=== PATIENT | female | born 1960 | race Caucasian/White ===

== ENCOUNTER 2023-12-18 11:40 | Emergency (ER) | payer MEDICARE, SELFPAY ==
[2023-12-18 11:43] VITALS: BP 142/83
--- NOTE | 2023-12-18 12:49 | ED.MUSCINJ ---
HPI-Injury
<DAVID Laureano - Last Filed: 12/18/23 15:04>
General
Chief Complaint: Fall
Source: patient
Exam Limitations: none
Time Seen by Provider: 12/18/23 12:25
Travel History
Have you had any contact with someone who has COVID-19?: No
Do you have any symptoms of coronavirus? Fever > 100 degrees, chills, cough, shortness of breath, sore throat, loss of taste or smell, muscle aches, or headache?: No
History of Present Illness-Injury
Is this injury a work related problem?: No
Is pt an associate of [facility]?: No
Initial Injury comments:
This is a 63 y/o female with a PMH of chronic back pain with sciatica who presents to the ED c/o RLE pain after falling on the ice last Sunday. She reports twisting her RLE while falling down and injuring her R hip, R knee, and R ankle. She
describes the knee pain as feeling a 'metal rajni shooting' from the back of her knee through to the front and down the lateral aspect of her LE to her ankle. She reports right medial ankle pain that is throbbing. The knee and ankle pain is aggravated
by twisting movements and weightbearing and alleviated with Vicodin and ice. She states that these pains are constant, but the ankle pain has been improving. She reports chronic right hip pain related to spinal problems that worsened after the fall.
Her hip pain is aggravated by laying on her right side and weightbearing. She admits to bruising on the medial and lateral aspects of her right ankle but denies swelling of her RLE. She reports driving her car without difficulty for the past week.
She denies weakness, numbness, paresthesias, and swelling of her RLE and any other injuries from the fall.
Past History
<DAVID Laureano - Last Filed: 12/18/23 15:04>
Past History
ED Past Medical History: Psychiatric (Anxiety and depression) and Other (Pneumonia)
ED Past Surgical History: , Gynecological and Orthopedic (Microdiscectomy, laparoscopic knee surgery)
Social History
Tobacco: Former smoker
Alcohol: None
Drug: None
Personal:
Employment: Employed ([employer] Artist)
Review of Systems
<DAVID Laureano - Last Filed: 12/18/23 15:04>
Review of Systems
Constitutional: Reports no symptoms
Musculoskeletal: Reports joint pain (Right hip, right knee, right ankle) and other (Right medial and lateral ankle ecchymosis); Denies joint swelling
Skin: Reports no symptoms
Neurological: Reports no symptoms; Denies weakness or numbness
Phy Exam
<DAVID Laureano - Last Filed: 12/18/23 15:04>
General Physical Exam
General Presentation: well appearing and no apparent distress
General age: appears stated age
General Skin: warm
General Habitus: normal
General Mental: alert
General Hydration: appears well hydrated
Neurological Exam
Neurological Exam: alert, oriented x3, no motor deficits, no sensory deficits and other (Normal muscle strength and sensation of RLE including hip, knee, and ankle)
Musculoskeletal Exam
Musculoskeletal Exam: full ROM, joint swelling (Right ankle, right knee), neuro vasc intact and other (Right knee pain with Digna valgus stress test)
Comment
comment:
Right lateral malleolus tender to palpation
Right knee: lateral knee tender to palpation, negative Briana's, negative anterior drawer, negative posterior drawer
Injury Course
<DAVID Laureano - Last Filed: 12/18/23 15:04>
Orders/Labs/Results
Orders:
Orders
12/18/23 11:50
CR Ankle - Right Min 3 Views * Urgent
Comment:
Reason For Exam: fall
Knee, Right 4 or More Views [CR Knee- Right 4 Or More View*] Urgent
Comment:
Reason For Exam: fall
12/18/23 13:05
CR Hip - RT w/wo Pel 2-3 Vw* Urgent
Comment:
Reason For Exam: trauma
Include a pelvis x-ray?: Yes
<Peter Monsalve MD - Last Filed: 12/18/23 14:21>
Orders/Labs/Results
Orders:
Orders
12/18/23 11:50
CR Ankle - Right Min 3 Views * Urgent
Comment:
Reason For Exam: fall
Knee, Right 4 or More Views [CR Knee- Right 4 Or More View*] Urgent
Comment:
Reason For Exam: fall
12/18/23 13:05
CR Hip - RT w/wo Pel 2-3 Vw* Urgent
Comment:
Reason For Exam: trauma
Include a pelvis x-ray?: Yes
<DAVID Laureano - Last Filed: 12/18/23 15:04>
MDM/Problems Addressed
MDM/Problems Addressed:
Patient with a PMH of chronic back pain with sciatica presents to the ED c/o RLE pain after falling on the ice last Sunday, injuring her R hip, R knee, and R ankle. X-rays of right knee reveal nondisplaced fibular head fracture.
<DAVID Laureano - Last Filed: 12/18/23 15:04>
*Critical Care Note
Total Time (30-74mins, 75-104mins- exclusive of procedures): Not Applicable
ED Attending Note
<DAVID Laureano - Last Filed: 12/18/23 15:04>
-
Portions of this chart may have been created with voice recognition software.� Occasional wrong word or��sound alike� substitutions may have occurred due to the inherent limitations of voice recognition software.
<Peter Monsalve MD - Last Filed: 12/18/23 14:21>
ED Attending Note
Patient seen and examined by attending physician: Yes
ED Attending Note:
Patient with history of chronic back pain and gait difficulties secondary to sciatica, presents to ED secondary to persistent right leg pain after tripping on ice last week. Patient has been able to ambulate with use of cane. Denies any other
injuries. Denies loss of sensation or weakness.
Physical Exam
General: no apparent distress, not acutely ill. afebrile
Head: nc/at. eomi
Neck: supple. normal range of motion.
Neuro: alert and oriented. no focal neurological deficits
Skin: no rash
Psychiatric: well kept. interactive and cooperative
Extremities: mild right hip/knee/lateral malleolar tenderness to palpation without obvious deformity.
X-ray report reviewed and discussed with patient, including subtle nondisplaced fibular fracture. Patient will be placed on knee immobilizer and encouraged to continue to use her cane at home, along with follow-up with her orthopedic surgeon at
[facility]. Patient will be given copy of x-ray prior to discharge.
Discharge Plan
Departure
Patient Disposition: Home (Routine Discharge)
Date of Disposition: 12/18/23
Time of Disposition: 14:02
Patient with high blood pressure during this ER visit?: Yes
Condition: Good
Discharge Problem:
Closed fibular fracture
Instructions: Knee Immobilizer (DC), Fibula Fracture (DC)
Prescriptions:
No Action
cephalexin 500 MG capsule
500 mg PO QID Qty: 28 0RF
prednisone 50 MG tablet
50 mg PO DAILY Qty: 5 0RF
Referrals:
Arsenio Hung MD [Family Provider] -
Activity Restrictions/Additional Instructions:
As discussed, please follow-up with your orthopedic surgeon at [facility] for further evaluation and treatment. In ED, x-ray revealed acute fibular fracture. Please continue to use provided knee immobilizer as well as cane for support.
Interventions
Interventions:
*Risk Screen - Suicide Last Done: 12/18/23 11:45
*General Assessment Last Done: 12/18/23 11:45
*Neglect/Abuse Screening Last Done: 12/18/23 11:45
*Nursing Disposition Last Done: 12/18/23 14:59
ED-Musculoskeletal Assessment Last Done: 12/18/23 13:24
ED- Neurological Assessment Last Done: 12/18/23 13:24
ED-Skin Assessment Last Done: 12/18/23 13:24
== END 2023-12-18 15:01 | disposition home or self-care (01) ==
LOC: EMR 11:40
PROVIDERS: EMERGENCY PHYSICIAN Emergency Medicine; FAMILY PHYSICIAN Internal Medicine
DX: S82.001A Unspecified fracture of right patella, initial encounter for closed fracture (principal); W00.0XXA Fall on same level due to ice and snow, initial encounter; F41.9 Anxiety disorder, unspecified; F32.A Depression, unspecified; Z87.891 Personal history of nicotine dependence
CPT/HCPCS: 99283; 29505; 73502; 73564; 73610

== ENCOUNTER → 2024-01-27 13:21 | Outpatient (REF) | payer MEDICARE, SELFPAY | LOC: MRI 3T 13:21 | PROVIDERS: ATTENDING PHYSICIAN Physical Medicine & Rehabilitation; FAMILY PHYSICIAN Internal Medicine | DX: M23.91 Unspecified internal derangement of right knee (principal) | CPT/HCPCS: 73721 ==

== ENCOUNTER → 2024-10-27 10:21 | Outpatient (REF) | payer MEDICARE, SELFPAY | LOC: EMG 10:21 | PROVIDERS: ATTENDING PHYSICIAN Neurological Surgery; FAMILY PHYSICIAN Internal Medicine | DX: F41.1 Generalized anxiety disorder (principal); M54.16 Radiculopathy, lumbar region; R20.0 Anesthesia of skin | CPT/HCPCS: 76830; 76856; 95886; 95910 ==

== ENCOUNTER → 2024-11-11 09:37 | Outpatient (REF) | payer MEDICARE, SELFPAY | LOC: HWRAD 09:37 | PROVIDERS: ATTENDING PHYSICIAN Internal Medicine | DX: F41.1 Generalized anxiety disorder (principal); M54.16 Radiculopathy, lumbar region; R10.11 Right upper quadrant pain | CPT/HCPCS: 76700 ==

== ENCOUNTER → 2025-06-22 14:48 | Outpatient (REF) | payer MEDICARE, SELFPAY | LOC: MRI 14:48 | PROVIDERS: ATTENDING PHYSICIAN Nurse Practitioner Adult Health; FAMILY PHYSICIAN Neurological Surgery | DX: M54.16 Radiculopathy, lumbar region (principal); M96.1 Postlaminectomy syndrome, not elsewhere classified; M54.14 Radiculopathy, thoracic region | CPT/HCPCS: 72148 ==